=== PATIENT | male | born 1980 | race Two or more races ===

== ENCOUNTER 2017-03-15 11:17 | Emergency (ER) | payer SELFPAY ==
[2017-03-15 11:21] VITALS: BMI 41.5
[2017-03-15 11:23] VITALS: BP 136/81; PULSE 72; RESP 18; TEMP 98; O2SAT 97
== END 2017-03-15 12:35 | disposition left against medical advice (07) ==
LOC: H.ER 11:17
DX: Z02.89 Encounter for other administrative examinations (principal)